=== PATIENT | female | born 1950 | race Caucasian/White ===

== ENCOUNTER 2017-10-05 13:41 | Inpatient (IN) | payer OTHER ==
[2017-10-05] MEDS ORDERED: LET GEL TOPICAL 1 EA SYR TP ONE ×2 (14:26→15:01)
--- NOTE | 2017-10-05 14:36 | EDPHY ---
H & P Stated Complaint: Slippped on ice;fell,hit L side of face,no LOC but now w/ diploplia - Personal History Current Tetanus Diphtheria and Acellular Pertussis (TDAP): Yes - Medical/Surgical History Other PMH: HTN - Social History Smoking Status: Never smoked Time Seen by Provider: 10/05/17 14:14 HPI/ROS: CHIEF COMPLAINT: Fall, hit head, left shoulder HISTORY OF PRESENT ILLNESS: 67-year-old female no anticoagulant use, arrives via private vehicle after she slipped on ice, impacted the left frontal region of her head and left shoulder with positive loss of consciousness. Did complain of transient diplopia, now resolved. No nausea or vomiting. No alcohol or drug use. No midline C-spine pain. No peripheral paresthesia, weakness, numbness. This was a mechanical episode, non syncope. PRIMARY CARE PROVIDER: In [place] REVIEW OF SYSTEMS: A ten point review of systems was performed and is negative with the exception of the items mentioned in the HPI PAST MEDICAL/SURGICAL HISTORY: no anticoagulant use, no relevant medical/ surgical history SOCIAL HISTORY: denies alcohol use at time of incident PHYSICAL EXAM 1) GENERAL: Well-developed, well-nourished, alert and oriented. Appears to be in no acute distress. Answering questions appropriately. 2) HEAD: Normocephalic, all left lateral eyebrow 1 cm laceration 3) HEENT: Pupils equal, round, reactive to light bilaterally. Negative Horners. Nasopharynx, oropharynx, clear. No abnormal gaze with extraocular movements. No deformity or angulation of nose. No septal hematoma. No rhinorrhea. No oral trauma. Ears bilaterally with normal tympanic membranes. No hemotympanum. No fluid or blood in the external auditory canal. No raccoon eyes. No Isaacs sign. Teeth are normally aligned with no gross malocclusion, TMJ bilaterally nontender, facial bones nontender including the zygomatic arch, maxilla mandible. 4) NECK: No cervical collar is on. Posterior cervical spine is nontender, no stepoff, no effusion. Full range of motion which does not elicit any midline cervical spine pain, no posterior midline tenderness, no step-off. 5) LUNGS: Clear to auscultation bilaterally, no wheezes, no rhonchi, no retractions. No obvious signs of trauma. No chest wall pain. No flaring, no grunting. Moving symmetrically. No crepitus. 6) HEART: [Regular rate and rhythm, 7) ABDOMEN: No guarding, no rebound, no focal tenderness, no peritoneal signs, no signs of trauma, no ecchymosis 8) MUSCULOSKELETAL: Left upper extremity: No visible signs of trauma no step- off, tender to palpation left shoulder. Proximally distally nontender. Radial ulnar median nerve function intact. Otherwise, Moving all extremities, no focal areas of tenderness, no obvious trauma. Bilateral hips nontender. 9) BACK: No midline vertebral tenderness, no fluctuance, no step-off, no obvious trauma, no visual or palpable abnormality. 10) SKIN: facial laceration 11) NEURO: Awake, alert, and oriented to person, place and time. Answers questions appropriately. There were no obvious focal neurologic abnormalities. No cerebellar dysfunction. Cranial nerves 2 through to 12 intact. Normal steady gait. Upper and lower extremities bilaterally with strength 5 / 5, reflexes 2+. DIFFERENTIAL DIAGNOSIS: Not necessarily in any particular order, my differential diagnosis includes, but is not limited to, concussion, skull fracture, intraparenchymal contusion, subarachnoid, subdural and epidural hematoma. The patient understands that this diagnosis is provisional and can never be 100% accurate. (Octavio Tavarez) Constitutional: Initial Vital Signs Temperature (C) 36.7 C 10/05/17 13:44 Heart Rate 62 10/05/17 13:44 Respiratory Rate 16 10/05/17 13:44 Blood Pressure 179/103 H 10/05/17 13:44 O2 Sat (%) 96 10/05/17 13:44 O2 Delivery Mode Room Air Allergies/Adverse Reactions: lisinopril Allergy (Verified 10/05/17 13:49) "post nasal drip" Home Medications: Medication Instructions Recorded Cholecalciferol Vit D3 [Vitamin D3 1,000 units PO BID 10/05/17 (*)] Fluticasone/Salmeter 250/50Mcg 1 puffs IH BID PRN 10/05/17 [Advair 250/50 (*)] Herbals/Supplements -Info Only 1 ea PO DAILY 10/05/17 Ibuprofen [Motrin (*)] 200 - 600 mg PO DAILY PRN 10/05/17 Losartan Potassium [Cozaar] 100 mg PO DAILY 10/05/17 buPROPion SR [Wellbutrin 150mg SR 150 mg PO BID 10/05/17 (*)] Medical Decision Making Procedures: Procedure: Laceration repair with tissue adhesive Verbal consent was obtained from the patient. The 1 cm laceration on the left lateral eyebrow. The wound was scrubbed and explored to its base with a gloved finger. No foreign body seen, no foreign bodies palpated. There were no deep structures involved. The wound was repaired with tissue adhesive. The procedure was performed by myself. Patient has been informed that scarring will occur, although every effort has been made to minimize this. (Octavio Tavarez ) ED Course/Re-evaluation: 2:30 p.m.:Head CT ordered in this patient for trauma for the following indication: Greater than 65 years old. 3:15 p.m.:Discussed the case and imaging results with Dr. Watts in the ER, secondary supervising physician. .Will consult with Neurosurgery and Trauma surgery 3:20 pm: Consultation with Dr Julian, neurosurgery who recommends admit obs. I re-evaluated the patient, discussed imaging results, she has been questions appropriately. She remains with no midline C-spine pain. 3:30 pm: Consultation with Dr Fairbanks who will admit primarily 3:33 p.m.: Consultation with [facility] who will consult 4:30 p.m.: Dr Fairbanks requested MRI be ordered of the left shoulder (Octavio Tavarez) Other Provider: 1730: this pt was seen and examined by me. Patient is awaiting admission due to a cerebral contusion and left orbital fracture after slipping on ice today. She struck her head on the ground and also hit her left shoulder. She is currently complaining primarily of left shoulder pain and double vision. She denies any headache, weakness, or paresthesias. Neuro exam reveals a disconjugate gaze with leftward gaze, unable to gaze fully leftward with left eye, c/w left intraorbital fracture/muscle entrapment. Pain well controlled between morphine and Tylenol right now. Left shoulder MRI pending; shoulder x- ray was negative for fracture. (Chandni Watts) - Data Points Laboratory Results: Laboratory Results 10/05/17 15:28 10/05/17 15:28 Medications Given: Acetaminophen (Tylenol) 325 - 650 mg PO Q4HRS PRN PRN Reason: Pain, Mild Able to Take PO Stop: 04/03/18 15:26 Last Admin: 10/07/17 04:07 Dose: 650 mg Morphine Sulfate (Morphine) 1 - 2 mg IVP Q1HR PRN PRN Reason: Pain, Severe Unable to Take PO Stop: 10/15/17 15:26 Last Admin: 10/06/17 05:01 Dose: 1 mg Ondansetron HCl (Zofran) 4 mg IVP Q4HRS PRN PRN Reason: Nausea/Vomiting, Can't Take PO Stop: 04/03/18 15:26 Last Admin: 10/06/17 08:43 Dose: 4 mg Tramadol HCl (Ultram) 50 mg PO Q6 PRN PRN Reason: Pain, Severe Stop: 04/04/18 00:05 Last Admin: 10/06/17 08:08 Dose: 50 mg Zolpidem Tartrate (Ambien) 5 mg PO HS [facility] Stop: 04/04/18 20:59 Last Admin: 10/06/17 20:40 Dose: 5 mg Discontinued Medications Losartan Potassium (Cozaar) 100 mg PO DAILY [facility] Stop: 04/04/18 11:44 Last Admin: 10/06/17 12:27 Dose: 75 mg Morphine Sulfate (Morphine) 4 mg IVP EDNOW ONE Stop: 10/05/17 16:02 Last Admin: 10/05/17 16:08 Dose: 4 mg Morphine Sulfate (Morphine) 4 mg IVP EDNOW ONE Stop: 10/05/17 16:02 Last Admin: 10/05/17 16:08 Dose: Not Given Tetracaine/Epinephrine/Lidocaine (Let Gel Topical) 1 ea TP EDNOW ONE Stop: 10/05/17 15:02 Last Admin: 10/05/17 14:40 Dose: 1 ea Departure - Departure Disposition: [facility] Inpatient Acute Clinical Impression: Diplopia Fall due to ice or snow Qualifiers: Encounter type: initial encounter Qualified Code(s): W00.9XXA - Unspecified fall due to ice and snow, initial encounter Cerebral contusion Qualifiers: Encounter type: initial encounter Laterality: left Loss of consciousness presence/duration: with LOC of 30 min or less Qualified Code(s): S06.321A - Contusion and laceration of left cerebrum with loss of consciousness of 30 minutes or less, initial encounter Sprain of left shoulder Qualifiers: Encounter type: initial encounter Shoulder sprain type: unspecified sprain Qualified Code(s): S43.402A - Unspecified sprain of left shoulder joint, initial encounter Fracture of inferior orbital wall Qualifiers: Encounter type: initial encounter Fracture type: closed Laterality: left Qualified Code(s): S02.32XA - Fracture of orbital floor, left side, initial encounter for closed fracture Condition: Fair
[2017-10-05] MEDS ORDERED: NALOXONE HCL 0.4 MG/ML INJ IVP PRN (15:27)
[2017-10-05] MEDS ORDERED: ONDANSETRON DISINTEGRATING 4 MG TAB PO PRN (15:27)
[2017-10-05 15:41] LABS: PLATELET COUNT 384 10^3/uL (150-400)
[2017-10-05 15:50] LABS: INR 0.93 (0.83-1.16); PROTIME(PATIENT) 12.7 SEC (12.0-15.0)
[2017-10-05] MEDS: ONDANSETRON 4 MG/2 ML VIAL IVP PRN (16:08)
[2017-10-05] MEDS: ACETAMINOPHEN 325 MG TAB PO PRN ×2 (18:26→22:22)
--- NOTE | 2017-10-05 20:20 | GHP ---
[f rep st] HISTORY AND PHYSICAL DATE OF ADMISSION: 10/05/2017 CHIEF COMPLAINT: Trauma. HISTORY OF PRESENT ILLNESS: The patient is a 67-year-old woman who is traveling from the [facility] area to visit her new grandson, who slipped on ice and fell on the left side of her face and s houlder. She is complaining of vision changes when she sits up. If she closes 1 eye they are improv ed. She also has significant left shoulder pain. In the ER, a CT scan was obtained, which showed a hypodensity in the left frontal lobe. She also has a minimally displaced inferior orbital wall fract ure. PAST MEDICAL HISTORY: Hypertension, depression, reactive airway disease. ALLERGIES: Lisinopril. MEDICATIONS: Reviewed. FAMILY HISTORY: Noncontributory. REVIEW OF SYSTEMS: A 10-point review of systems negative except per HPI. PHYSICAL EXAMINATION: VITALS: Reviewed. GENERAL: Pleasant, well-nourished, well-groomed woman. H EENT: Normocephalic with the exception of a contusion under her left eye. Her pupils are equal, rou nd, and reactive to light. She does have a small amount of dried blood in her left ear which appears old. Tympanic membranes are normal. No otorrhea. Mouth: Teeth fit together normally. No midface instability. NECK: No cervical, thoracic, lumbar spine tenderness. CHEST: She is nontender to pa lpation. LUNGS: Clear to auscultation bilaterally. No increased work of breathing. ABDOMEN: Ralph l sounds present, soft, nontender. MUSCULOSKELETAL: 5/5 strength upper and lower extremities with t he exception of her left arm. She is unable to lift her proximal muscle groups. She does have good strength in her hand and her distal muscle groups. PSYCHIATRIC: Mood and affect normal. NEURO: Gr ossly intact. SKIN: No abrasions other than by left eye. LABORATORY DATA: Results reviewed. I personally reviewed the results of her CT scan. IMPRESSION AND PLAN: A 67-year-old woman with a cerebral contusion, left orbital fracture and should er pain. I have requested a shoulder MRI. Dr. Julian has evaluated for her possible contusion. She may be admitted to the floor with a regular diet and q.4 hours neuro checks. Discussed the case wit sandi Dias and this is a non operative orbital fracture. If future concerns arise he is happy to s ee her. I also discussed the case with Ophthalmology and she will see Dr. Adames in his office mayco jackson at 9:15. /[id number]/MODL
--- NOTE | 2017-10-05 20:45 | GCON ---
[f rep st] CONSULTATION DATE OF CONSULTATION: 10/05/2017 Time and location of consultation are approximately 3:30 p.m. in the emergency room. HOSPITAL COURSE/HISTORY/MAJOR MEDICAL FINDINGS: Patient is a 67-year-old female , who was walking down the street after getting a cup of coffee today. States that she tripped, caught her foot on something, and fell face down. She does recall those events of the time but states that she felt somewhat lightheaded and out of it at the time of the event. She denies any new numbness, tingling, pain, or weakness in her bilateral lower extremities or in her right upper extremity. In her left upper extremity, she is having some left shoulder pain and is unable to abduct her left shoulder. She is having some double vision. Denies any headache, nausea, or dizziness. REVIEW OF SYSTEMS: Review of systems is negative other than what is stated in the HPI. Please see the pertinent negatives and pertinent positives. PAST MEDICAL HISTORY: Significant for hypertension. 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 HOME MEDICATIONS: Losartan. ALLERGIES: lisinopril. SOCIAL HISTORY: Patient is from the [facility]. She was just here visiting. She has never smoked, and she has a glass of wine daily. FAMILY HISTORY: She does have a strong family history of colon cancer in both her mother and her sister and does have a history of strokes, as well. PHYSICAL EXAMINATION: VITAL SIGNS: Blood pressure 173/104, heart rate of 59. She is 97% on room air. Temp is 36.7. NEUROLOGIC: Patient is in no acute distress. She is alert and oriented x3. She answers questions appropriately and affect is appropriate to given situation. Her cranial nerves 2-12 are grossly intact other than she does have some slight dysconjugate gaze with EOMIs , though her eyes do move in all quadrants and directions. She does have double vision on EOMI. The patient is 5/5 in her right upper extremity, including deltoids, triceps, biceps, wrist flexors, wrist extensors, interossei , and intrinsic home health care case manager. In her left upper extremity, her left shoulder is not tested due to pain with movement. She is able to wiggle her toes and home health care case manager 5/5 on the left. She is a 5/5 in her bilateral lower extremities including her iliopsoas, hamstrings, quadriceps, plantar flexion, dorsiflexion, and EHL. Sensation is intact in bilateral upper and bilateral lower extremities. DIAGNOSTIC REVIEW: Patient underwent a head CT, which demonstrated a left- sided minimally displaced inferior orbital wall fracture and a possible contusion in the left frontal lobe versus artifact. ASSESSMENT AND PLAN: The patient is a 67-year-old female, who tripped and fell , landing directly on the left side of her face and who does have orbital trauma and a questionable left frontal contusion. Her CT scan results were discussed thoroughly with the patient. The patient was seen both by Dr. Julian and myself in the emergency room. We did discuss observation overnight versus home with close monitoring. She will have 24-hour monitoring while at home. We will defer to Trauma about her admission. Her GCS at the time of examination is a 15. We will not start her on any Keppra at this time. She does not take any blood thinners. If the patient is admitted, we will continue to follow. Would recommend a systolic blood pressure goal of less than 140 and q.4 hour neuro checks. /[id number]/MODL MTDD
[2017-10-06] MEDS: traMADol 50 MG TAB PO PRN ×2 (01:55→08:08)
[2017-10-06] MEDS: ACETAMINOPHEN 325 MG TAB PO PRN ×2 (04:19→16:55)
--- NOTE | 2017-10-06 07:22 | NEUSURGPN ---
Assessment/Plan: Assessment: 67 yo female that is s/p GLF with LOC. Pt with questionable left frontal contusion on CT head. Pt with orbital wall fracture/double vision as well as left shoulder RTC tear as well Plan: -s/p fall with questionable contusion: Pt is awake and alert. NAD. GCS 15 -pt seen by Dr Julian as well -pt to have an evaluation with Dr Adames for the orbital wall fracture and double vision at 0915 this am -ortho consulted for RTC tear -trauma is primary -ok from NS standpoint to travel back to [facility] tomorrow -call NS with any changes or issues -pt understands and agrees Subjective: Awake and alert. NAD. No brennan/neck/chest/abd or gu complaints. No f/c/n/v/d. Objective: AAO x 3, PERRLA/EOMI, GCS 15 no droop CN 2-12 grossly intact +lt touch CRISS x 4 Neuro Check Frequency: per routine Urinary Catheter in Place: No - Physician Discussed Patient with DrMonserrat: Eliel Patient Seen by : Eliel Neurosurgery Physical Exam - Vitals, I&O, Labs I and O 10/05/17 10/06/17 10/07/17 05:59 05:59 05:59 Intake Total 350 Balance 350 Weight 62.142 kg Intake: Oral (ml) 350 Other: Intake Quantity Yes Sufficient Number of Voids 2 Vital Signs Temp Pulse Resp BP Pulse Ox 36.6 C 55 L 16 146/84 H 94 10/06/17 04:00 10/06/17 04:00 10/06/17 04:00 10/06/17 04:00 10/06/17 04:00 ICD10 Worksheet Patient Problems: Problems Problem Status Onset Cerebral contusion Acute Fall due to ice or snow Acute Fracture of inferior orbital wall Acute Sprain of left shoulder Acute
[2017-10-06] MEDS: ONDANSETRON 4 MG/2 ML VIAL IVP PRN (08:43)
--- NOTE | 2017-10-06 09:52 | ASMTCASEMG ---
Living Arrangements What is your living Answers: Alone arrangement? Who do you live with? Type Of Residence What kind of residence do Answers: House you live in? Discharge Plan Comments Coordination Status Comments Notes: Pt is a 67 y/o female admitted for trauma. Pt is here visiting from [facility]. Pt slipped on ice and fell on the left side of her face and shoulder. Therapies have been ordered and awaiting recommendations. Needs are TBD at this time. CM to follow. Plan: TBD Date Signed: 10/06/2017 09:52 AM Electronically Signed By:ARUNA Lopez
[2017-10-06] MEDS ORDERED: PROMETHAZINE HCL 25 MG/ML INJ IVP PRN (10:54)
[2017-10-06] MEDS ORDERED: PROMETHAZINE HCL 25 MG TAB PO PRN (10:54)
[2017-10-06] MEDS ORDERED: LOSARTAN POTASSIUM 50 MG TAB PO SCH (11:45)
--- NOTE | 2017-10-06 19:46 | SOAPPROG ---
SOAP Progress Note Assessment/Plan: Assessment: 67 FEMALE SP FALL WITH LEFT ROTATOR CUFF TEAR AND LEFT ORBIT FX SEEN BY OPTHAL TODAY WITH NO TREATMENT NEEDED NS SIGNED OFF NO NEED FOR ORTHO PT WISHES TO HAVE SHOULDER TEAR REPAIRED IN BAY AREA NEURO INTACT CHEST CLEAR AND SYMMETRIC/ COR RR ABD SOFT, NONTENDER EXTREM LEFT SHOULDER IN SLING HEENT NONICTERIC, SUPPLE NECK, PERRLA, SOME SWELLING LEFT ORBITAL AREA TERTIARY EXAM COMPLETE Plan:PROBABLY HOME IN AM/ OK FOR TRAVEL 10/06/17 19:41 Objective: Vital Signs Temp Pulse Resp BP Pulse Ox 36.6 C 63 16 157/96 H 93 10/06/17 15:49 10/06/17 15:49 10/06/17 15:49 10/06/17 15:49 10/06/17 15:49 10/05/17 10/06/17 10/07/17 05:59 05:59 05:59 Intake Total 350 250 Balance 350 250 PT 12.7 SEC (12.0-15.0) 10/05/17 15:28 INR 0.93 (0.83-1.16) 10/05/17 15:28 ICD10 Worksheet Patient Problems: Problems Problem Status Onset Cerebral contusion Acute Fall due to ice or snow Acute Fracture of inferior orbital wall Acute Sprain of left shoulder Acute
[2017-10-06] MEDS ORDERED: ZOLPIDEM TARTRATE 5 MG TAB PO SCH (21:00)
[2017-10-07 04:02] VITALS: RESP 16
[2017-10-07] MEDS: ACETAMINOPHEN 325 MG TAB PO PRN (04:07)
[2017-10-07] MEDS ORDERED: oxyCODONE IR 5 MG TAB PO PRN (07:55)
[2017-10-07] MEDS ORDERED: IBUPROFEN 600 MG TAB PO PRN (07:55)
--- NOTE | 2017-10-07 08:12 | NEUSURGPN ---
Assessment/Plan: Assessment: 67 yo female that is s/p GLF with LOC. Pt with questionable left frontal contusion on CT head. Pt with orbital wall fracture/double vision as well as left shoulder RTC tear as well Plan: -s/p fall with questionable contusion: Pt is awake and alert. NAD. GCS 15 -pt seen by Dr Julian as well -pt is s/p evaluation with Dr Adames for the orbital wall fracture and double vision -ortho consulted for RTC tear-sling in place -trauma is primary -ok from NS standpoint to travel back to [place] area but therapy wants pt to stay in area til Wednesday -NS to sign off at this time-please call with any questions or concerns-prn follow up with her PCP when back home -call NS with any changes or issues -pt understands and agrees Subjective: Awake and alert. NAD. Eating/drinking and voiding. No f/c/n/v/d. Objective: AAO x 3, PERRLA/EOMI, GCS 15 no droop CN 2-12 grossly intact +lt touch CRISS x 4 Neuro Check Frequency: per routine Urinary Catheter in Place: No - Physician Discussed Patient with .: Eliel Patient Seen by : Eliel Neurosurgery Physical Exam - Vitals, I&O, Labs I and O 10/06/17 10/07/17 10/08/17 05:59 05:59 05:59 Other: Intake Quantity Yes Sufficient Number of Voids Toilet 2 Vital Signs Temp Pulse Resp BP Pulse Ox 36.5 C 64 16 147/87 H 94 10/07/17 04:00 10/07/17 04:00 10/07/17 04:00 10/07/17 04:00 10/07/17 04:00 ICD10 Worksheet Patient Problems: Problems Problem Status Onset Cerebral contusion Acute Diplopia Acute Fall due to ice or snow Acute Fracture of inferior orbital wall Acute Sprain of left shoulder Acute
[2017-10-07 08:17] VITALS: BP 134/89; PULSE 63; TEMP 98.1; O2SAT 93
--- NOTE | 2017-10-07 08:45 | TRAUMAPN ---
Assessment/Plan: 67-year-old female status post mechanical fall with left orbital fracture, left rotator cuff tear - patient is doing well this morning, had a rough night sleeping as she has wanted to the abstain from narcotics. We discussed this morning adding narcotics in just for the night, in using ibuprofen and Tylenol throughout the day in a staggered format for pain control. She met with the electromechanical inspector yesterday, will follow up with an orthopedic surgeon at home. Anticipate discharge later today, she will go home with her daughter until Wednesday at which point time she will fly back home. Subjective: Feels well, main complaint is left shoulder pain. Objective: Vital Signs Temp Pulse Resp BP Pulse Ox 36.7 C 63 16 134/89 H 93 10/07/17 08:00 10/07/17 08:00 10/07/17 08:00 10/07/17 08:00 10/07/17 08:00 PT 12.7 SEC (12.0-15.0) 10/05/17 15:28 INR 0.93 (0.83-1.16) 10/05/17 15:28
[2017-10-07] MEDS ORDERED: LOSARTAN POTASSIUM 50 MG TAB PO SCH (09:00)
[2017-10-07] MEDS ORDERED: FLUTICASONE/SALMETER 250/50MCG DISKUS IH PRN (09:36)
--- NOTE | 2017-10-07 11:51 | ASMTCMCOM ---
CM Note CM Note Notes: Patient medically cleared for dc to home. No cm needs identified. CM available should other needs arise. Date Signed: 10/07/2017 11:51 AM Electronically Signed By:Maria Elena Angel RN
--- NOTE | 2017-10-07 11:54 | ASDISCHSUM ---
Discharge Information Plan Status:Home with No Needs Medically Cleared to Leave: Discharge Date:10/07/2017 10:54 AM CM D/C Disposition:Home, Routine, Self-Care ADT D/C Disposition:Home, Routine, Self-Care Projected Discharge Date:10/07/2017 10:54 AM Transportation at D/C:Family Discharge Delay Reason: Follow-Up Date:10/07/2017 10:54 AM Discharge Slot: Final Diagnosis: Placement Information Patient Contact Information Contact Name:YARELI Relationship:Friend Address: Work Phone: City: [facility] Phone: State/[employer] Code: Email: Financial Information Financial Class:Medicare Advantage Plans Primary Plan Desc:[employer] MEDICARE Primary Plan Number:[id number] Secondary Plan Desc: Secondary Plan Number: Assessment Information [facility] Initial CM Assessment Living Arrangements What is your living Answers: Alone arrangement? Who do you live with? Type Of Residence What kind of residence do Answers: House you live in? Discharge Plan Comments Coordination Status Comments Notes: Pt is a 67 y/o female admitted for trauma. Pt is here visiting from [facility]. Pt slipped on ice and fell on the left side of her face and shoulder. Therapies have been ordered and awaiting recommendations. Needs are TBD at this time. CM to follow. Plan: TBD Date Signed: 10/06/2017 09:52 AM Electronically Signed By:ARUNA Lopez [facility] CM Progress Note CM Note CM Note Notes: Patient medically cleared for dc to home. No cm needs identified. CM available should other needs arise. Date Signed: 10/07/2017 11:51 AM Electronically Signed By:Maria Elena Angel RN Intervention Information
--- NOTE | 2017-10-07 13:53 | GDS ---
[f rep st] DISCHARGE SUMMARY DISCHARGE DIAGNOSES: Includes 1. Left orbital fracture. 2. Left rotator cuff injury. 3. Closed head injury. HOSPITAL COURSE: The patient was admitted from the emergency department on the afternoon of the after sustaining a mechanical fall and the above injuries were identified. She had consultations fro m neurosurgery, ophthalmology. Orthopedics was deferred per patient request. Subsequently, the patie nt was felt to be stable. She was subsequently discharged home on the afternoon of the in stable condition with plan to follow up with a known orthopedic surgeon in [place] where she resides. Keturah small will plan to stay in town for the next few days and will travel back to [place] early next week. DISCHARGE MEDICATIONS: The only new medication started today was oxycodone as needed for pain in add ition to oral Zofran for occasional nausea. DISPOSITION: Home with family. FOLLOWUP: She will follow up at home with her own physician. /[id number]/MODL
[2017-10-07] MEDS ORDERED: buPROPion SR 150 MG TAB PO SCH (21:00)
[2017-10-07] MEDS ORDERED: CHOLECALCIFEROL VIT D3 1,000 UNITS TAB PO SCH (21:00)
[2017-10-08] MEDS ORDERED: Herbals/Supplements -Info Only PO SCH (09:00)
[2017-10-08] MEDS ORDERED: LOSARTAN POTASSIUM 50 MG TAB PO SCH (09:00)
== END 2017-10-07 10:54 | disposition home or self-care (01) | DRG 564 ==
LOC: F3N 18:14 → OBSVTOIN 10-06 16:00
PROVIDERS: ADMIT Surgery; ATTEND Surgery
PROC: 0HQ1XZZ Repair Face Skin, External Approach (ICD-10-PCS; principal; 2017-10-06)
DX: S02.82XA Fracture of other specified skull and facial bones, left side, initial encounter for closed fracture (principal); S06.321A Contusion and laceration of left cerebrum with loss of consciousness of 30 minutes or less, initial encounter; S43.402A Unspecified sprain of left shoulder joint, initial encounter; S02.32XA Fracture of orbital floor, left side, initial encounter for closed fracture; S01.81XA Laceration without foreign body of other part of head, initial encounter; W00.0XXA Fall on same level due to ice and snow, initial encounter; Y92.480 Sidewalk as the place of occurrence of the external cause; I10 Essential (primary) hypertension; F32.9 Major depressive disorder, single episode, unspecified; J45.909 Unspecified asthma, uncomplicated
CPT/HCPCS: 92507-GN; 92523-GN; 97116-GP; 97162-GP; 97166-GO; 97535-GO; G0378; J2405; J2550